=== PATIENT | female | born 1995 | race Caucasian/White ===

== ENCOUNTER → 2021-05-20 16:23 | Outpatient (BNVA) | payer OTHER, SELFPAY | PROVIDERS: Family Provider Family Medicine; PCP Family Medicine; Referring Provider Family Medicine; Visit Provider Nurse Practitioner Family | DX: N39.0 Urinary tract infection, site not specified (principal) | CPT/HCPCS: 81003; 87086 ==

== ENCOUNTER → 2021-09-29 14:17 | Outpatient (BNVA) | payer OTHER, SELFPAY | PROVIDERS: Family Provider Family Medicine; PCP Family Medicine; Visit Provider Internal Medicine | DX: N92.6 Irregular menstruation, unspecified (principal); N94.6 Dysmenorrhea, unspecified; F41.9 Anxiety disorder, unspecified; F32.A Depression, unspecified; R10.30 Lower abdominal pain, unspecified | CPT/HCPCS: 99204 ==

== ENCOUNTER 2022-08-18 16:00 | Outpatient (CLI) | payer OTHER, SELFPAY ==
[2022-08-18 17:50] LABS: Follicle Stimulating Hormone 3.6 mIU/mL; Prolactin 13.75 ng/mL (4.8-23.3)
[2022-08-20 12:24] LABS: Dehydroepiandrosterone Sulfate 95 mcg/dL (14-349)
== END 2022-08-18 16:01 | disposition home or self-care (01) ==
PROVIDERS: PCP Family Medicine; Visit Provider Family Medicine
DX: N92.1 Excessive and frequent menstruation with irregular cycle (principal)
CPT/HCPCS: 82627; 82670; 82677; 83001; 84144; 84146

== ENCOUNTER → 2023-06-23 15:05 | Outpatient (BNVA) | payer OTHER, SELFPAY | PROVIDERS: PCP Family Medicine; Visit Provider Nurse Practitioner | DX: R39.9 Unspecified symptoms and signs involving the genitourinary system (principal) | CPT/HCPCS: 81000; 87086 ==